=== PATIENT | female | born 1985 | race Caucasian/White ===

== ENCOUNTER 2020-12-02 15:05 | Emergency (ER) | payer SELFPAY ==
[~2020-12-02] VITALS: Ht 165.1 cm; Wt 82.7 kg
[2020-12-02 15:32] LABS: BILIRUBIN,URINE NEGATIVE (NEG); CLARITY,URINE CLEAR; COLOR,URINE YELLOW; NITRITE,URINE NEGATIVE (NEG); PH,URINE 5.5 (<5.0-8.0); PROTEIN,URINE NEGATIVE (NEG-TRACE); UROBILINOGEN,URINE 0.2 mg/dL (0.2 mg/dL)
[2020-12-02 15:39] LABS: BASO # 0.1 x10^3/uL (0.0-0.2); BASO % 1 % (0-3); EOS # 0.1 x10^3/uL (0.0-0.7); EOS % 1 % (0-3); HEMATOCRIT 42.4 % (36.0-47.0); HEMOGLOBIN 14.5 g/dL (12.0-15.5); LYMPH % 32 % (24-48); MEAN CORPUSCULAR HEMOGLOBIN 31 pg (25-35); MEAN CORPUSCULAR HGB CONC 34 g/dL (31-37); MEAN CORPUSCULAR VOLUME 91 fL (79-100); MONO # 0.7 x10^3/uL (0.0-1.1); MONO % 7 % (0-9); NEUT # 5.5 x10^3/uL (1.8-7.7); NEUT % 58 % (31-73); PLATELET COUNT 247 x10^3/uL (140-400); RED BLOOD COUNT 4.66 x10^6/uL (3.50-5.40); RED CELL DISTRIBUTION WIDTH 13.8 % (11.5-14.5); WHITE BLOOD COUNT 9.4 x10^3/uL (4.0-11.0)
[2020-12-02 15:45] LABS: BACTERIA,URINE FEW /HPF (0-FEW); WBC,URINE RARE /HPF (0-4)
[2020-12-02] MEDS ORDERED: IV NORMAL SALINE 1000ML BAG 1,000 ML IV ONE (15:45)
--- NOTE | 2020-12-02 15:46 | PHYS DOC ---
Past Medical History Past Medical History: No Pertinent History Past Surgical History: Hysterectomy Smoking Status: Unknown if ever smoked Alcohol Use: None General Adult EDM: Chief Complaint: ABDOMINAL PAIN HPI: HPI: Patient is a 35 year old female who presents with 2 weeks of intermittent abdominal cramping that is generalized and then the last 2 days that she has had sharp shooting pain that goes down the back of the right leg. The patient states that she has bilateral gluteal cramping. She denies any numbness or tingling. She states that she has also noticed that when she goes to stand up she will begin to dribble urine. She states that it is normal for her that when she laughs or jumps or exercises things like that that she will sometimes dribble urine but not like this. She states that she has a normal bowel movement yesterday. She states that she has not lost her bowels. She states she feels like her lower back bilaterally is in spasms. Patient also has concerns for sexually transmitted diseases and wants to be checked and treated today. Patient is rating her pain an 8 out of 10. Patient has had a hysterectomy in the past but denies any other past medical history. Review of Systems: Review of Systems: Constitutional: Denies fever or chills. [] Eyes: Denies change in visual acuity. [] HENT: Denies nasal congestion or sore throat. [] Respiratory: Denies cough or shortness of breath. [] Cardiovascular: Denies chest pain or edema. [] GI: + Low mid abdominal pain, denies nausea, vomiting, bloody stools or diarrhea. [] : Denies dysuria. + Urinary dribbling [] Musculoskeletal: + Bilateral lower back pain with sharp shooting pain down the back of her right leg or denies joint pain. + Gluteal spasms [] Integument: Denies rash. [] Neurologic: Denies headache, focal weakness or sensory changes. [] Endocrine: Denies polyuria or polydipsia. [] Lymphatic: Denies swollen glands. [] Psychiatric: Denies depression or anxiety. [] Heart Score: Risk Factors: Risk Factors: DM, Current or recent (<one month) smoker, HTN, HLP, family history of CAD, obesity. Risk Scores: Score 0 - 3: 2.5% MACE over next 6 weeks - Discharge Home Score 4 - 6: 20.3% MACE over next 6 weeks - Admit for Clinical Observation Score 7 - 10: 72.7% MACE over next 6 weeks - Early Invasive Strategies Current Medications: Current Medications Medications (Trade) Dose Ordered Sig/Iam Start Time Stop Time Status Last Admin Dose Admin Azithromycin (Zithromax) 1,000 mg 1X ONCE 12/02/20 15:30 12/02/20 15:31 UNV Ceftriaxone Sodium (Rocephin Im) 500 mg 1X ONCE 12/02/20 15:30 12/02/20 15:31 UNV Fentanyl Citrate (Fentanyl 2ml Vial) 50 mcg 1X ONCE 12/02/20 15:30 12/02/20 15:31 UNV Methylprednisolone Sodium Succinate (SOLU-Medrol 125MG VIAL) 125 mg 1X ONCE 12/02/20 15:30 12/02/20 15:31 UNV Ondansetron HCl (Zofran) 4 mg 1X ONCE 12/02/20 15:30 12/02/20 15:31 UNV Sodium Chloride 1,000 ml @ 1,000 mls/hr 1X ONCE 12/02/20 15:45 12/02/20 16:44 UNV Physical Exam: PE: Constitutional: Well developed, well nourished, no acute distress, non-toxic appearance. [] HENT: Normocephalic, atraumatic, bilateral external ears normal, oropharynx moist, no oral exudates, nose normal. [] Eyes: PERRLA, EOMI, conjunctiva normal, no discharge. [] Neck: Normal range of motion, no tenderness, supple, no stridor. [] Cardiovascular:Heart rate regular rhythm, no murmur [] Lungs & Thorax: Bilateral breath sounds clear to auscultation [] Abdomen: Bowel sounds normal, soft, mid lower tenderness, no masses, no pulsatile masses. [] Skin: Warm, dry, no erythema, no rash. [] Back: No tenderness, no CVA tenderness. [] Extremities: No tenderness, no cyanosis, no clubbing, ROM intact, no edema. [] Neurologic: Alert and oriented X 3, normal motor function, normal sensory function, no focal deficits noted. [] Psychologic: Affect normal, judgement normal, mood normal. [] Current Patient Data: Labs: Laboratory Tests Test 12/02/20 15:23 POC Urine HCG, Qualitative Hcg negative (Negative) Vital Signs: Vital Signs Date Time Temp Pulse Resp B/P (MAP) Pulse Ox O2 Delivery O2 Flow Rate FiO2 12/02/20 15:20 98.5 89 16 145/83 (103) 100 Room Air 98.5 EKG: EKG: [] Radiology/Procedures: Radiology/Procedures: [] Impression: [facility] [address] [place] [address] IMAGING REPORT Signed PATIENT: KATHIE MANZANO ACCOUNT: [id number] : 1985 LOCATION: ER AGE: 35 SEX: F EXAM STATUS: REG ER ORD. PHYSICIAN: GLORY DYER APRN REASON: abd pain, bloating PROCEDURE: CT ABD PELV W/ IV CONTRST ONLY CT SCAN OF THE ABDOMEN AND PELVIS WITH IV CONTRAST. History: Reason: abd pain, bloating Comparison:None. Procedure: Contiguous axial images of the abdomen and pelvis were performed after the administration of 60 cc of Omni 300 IV contrast. Oral contrast: No. Findings: Liver: 6 mm hypoattenuating lesion posteriorly right lobe of liver is too small to characterize but is likely a cyst Spleen: Unremarkable Pancreas: Unremarkable Adrenal Glands: Unremarkable Kidneys: Unremarkable There is no mass or lymphadenopathy. There is no free air. There is no free fluid. The urinary bladder appears normal. The gallbladder appears normal. The appendix is not seen. Impression: No acute findings. End impression CT lumbar spine without contrast History: Back pain Axial helical images of the lumbar spine were obtained without contrast. Axial, coronal and sagittal reconstruction was performed. Findings: The vertebral bodies are aligned. There is no loss of vertebral body stature. Evaluation of the central canal is limited without contrast. There is no evidence of significant central or neuroforaminal stenosis. Impression: No acute findings. PQRS Compliance Statement: One or more of the following individualized dose reduction techniques were u tilized for this examination: 1. Automated exposure control 2. Adjustment of the mA and/or kV according to patient size 3. Use of iterative reconstruction technique Electronically signed by: Herbert Lemons III, MD (12/02/2020 5:08 PM) [facility] DICTATED and SIGNED BY: HERBERT LEMONS III, MD DATE: 12/02/20 [id number] 0 Course & Med Decision Making: Course & Med Decision Making Pertinent Labs and Imaging studies reviewed. (See chart for details) See HPI. Patient is ambulatory with a steady gait. Every time she bends over or tries to go from sitting to standing or standing to sitting she has a lot of pain in her back. Her abdomen is soft but she states she has some tenderness to the mid lower abdomen with palpation. Sensations intact. Patient is treated with Rocephin and azithromycin for chlamydia and gonorrhea and she is told that the results will come back in 48 hours and she will be called only if something is positive. She denies any kind of injury to her back. 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 She states that a couple days ago she did notice that when she went to lift a box she began to dribble some urine. Patient is moving all extremities equally with equal strengths. Good deep tendon reflexes. Alert and oriented x4. Skin pink warm and dry. PERRLA. She denies urinary symptoms, vaginal discharge, vaginal itching, diarrhea, constipation, nausea, vomiting, headache, dizziness, focal weakness, numbness or tingling, vision changes, chest pain, shortness of air. Patient is given Solu- Medrol, 1 liter bolus, fentanyl, Zofran also in the ED. [] Dragon Disclaimer: Dragon Disclaimer: This electronic medical record was generated, in whole or in part, using a voice recognition dictation system. Departure Departure Impression: Primary Impression: Abdominal pain Qualified Codes: R10.84 - Generalized abdominal pain Additional Impressions: Back pain Qualified Codes: M54.41 - Lumbago with sciatica, right side Urinary symptom or sign Concern about STD in female without diagnosis Disposition: 01 DC HOME SELF CARE/HOMELESS Condition: STABLE Patient Instructions: Abdominal Pain (Nonspecific), Back Pain, Adult, Sciatica with Rehab-SportsMed, Sexually Transmitted Disease Additional Instructions: Follow-up with your primary care provider as needed. Return if you start having focal weakness in certain part of your body or in extremity, numbness in the buttocks area, loss of bowel or total loss of bladder. Scripts Ibuprofen (IBUPROFEN) 600 Mg Tablet 600 MG PO PRN Q6HRS PRN for INFLAMMATION, #24 TAB Prov: GLORY DYER [employer] 12/02/20 Tramadol Hcl (TRAMADOL HCL) 50 Mg Tablet 50 MG PO Q6HRS PRN for PAIN, #12 TAB Prov: GLORY DYER [employer] 12/02/20 Cyclobenzaprine Hcl (CYCLOBENZAPRINE HCL) 10 Mg Tablet 1 TAB PO TID, #30 TAB Prov: GLORY DYER [employer] 12/02/20 Methylprednisolone (MEDROL) 4 Mg Tab.ds.pk 1 PKG PO UD, #1 PKG Prov: GLORY DYER [employer] 12/02/20 GLORY DYER APRN Dec 02, 2020 15:46
[2020-12-02 16:27] LABS: CALCIUM 8.7 mg/dL (8.5-10.1); CREATININE 1.1 mg/dL (0.6-1.0); GFR 55.9; POTASSIUM 3.9 mmol/L (3.5-5.1)
[2020-12-02 16:29] LABS: ALBUMIN 3.4 g/dL (3.4-5.0); TOTAL BILIRUBIN 0.3 mg/dL (0.2-1.0); TOTAL PROTEIN 6.9 g/dL (6.4-8.2)
[2020-12-02] MEDS ORDERED: AZITHROMYCIN 250 MG TABLET. PO ONE (16:30)
[2020-12-02] MEDS ORDERED: fentaNYL PF VIAL 100 MCG/2 ML VIAL IVP ONE (16:30)
[2020-12-02] MEDS ORDERED: ONDANSETRON PF 4 MG/2 ML VIAL. IVP ONE (16:30)
[2020-12-02] MEDS ORDERED: cefTRIAXone IM 250 MG VIAL IM ONE (16:30)
[2020-12-02] MEDS ORDERED: methylPREDNISolone SOD SUCC PF 125 MG/2 ML VIAL. IV ONE (16:30)
[2020-12-02] MEDS ORDERED: IOHEXOL 300 MG/ML 100ML VIAL. IV ONE (16:45)
[2020-12-02] MEDS ORDERED: CONTRAST GIVEN. MC PRN (16:45)
--- NOTE | 2020-12-02 17:10 | RAD ---
CT SCAN OF THE ABDOMEN AND PELVIS WITH IV CONTRAST. History: Reason: abd pain, bloating Comparison:None. Procedure: Contiguous axial images of the abdomen and pelvis were performed after the administration of 60 cc o f Omni 300 IV contrast. Oral contrast: No. Findings: Liver: 6 mm hypoattenuating lesion posteriorly right lobe of liver is too small to characterize but i s likely a cyst Spleen: Unremarkable Pancreas: Unremarkable Adrenal Glands: Unremarkable Kidneys: Unremarkable There is no mass or lymphadenopathy. There is no free air. There is no free fluid. The urinary bladder appears normal. The gallbladder appears normal. The appendix is not seen. Impression: No acute findings. End impression CT lumbar spine without contrast History: Back pain Axial helical images of the lumbar spine were obtained without contrast. Axial, coronal and sagittal reconstruction was performed. Findings: The vertebral bodies are aligned. There is no loss of vertebral body stature. Evaluation of the central canal is limited without contrast. There is no evidence of significant cent ral or neuroforaminal stenosis. Impression: No acute findings. PQRS Compliance Statement: One or more of the following individualized dose reduction techniques were utilized for this examinat ion: 1. Automated exposure control 2. Adjustment of the mA and/or kV according to patient size 3. Use of iterative reconstruction technique Electronically signed by: Merrill Genao III, MD (12/02/2020 5:08 PM) [facility]
[2020-12-02] MEDS ORDERED: METH4TAB2 PO (17:38)
[2020-12-02] MEDS ORDERED: TRAM50TA PO (17:38)
[2020-12-02] MEDS ORDERED: IBUP-1007 PO (17:38)
[2020-12-02] MEDS ORDERED: CYCL10TA2 PO (17:38)
[2020-12-02 18:07] VITALS: BP 124/64
[2020-12-03 19:10] LABS: GC PROBE Negative (Negative)
== END 2020-12-02 18:05 | disposition home or self-care (01) ==
LOC: ER 15:05
DX: R10.84 Generalized abdominal pain (principal); M54.41 Lumbago with sciatica, right side; Z20.2 Contact with and (suspected) exposure to infections with a predominantly sexual mode of transmission; Z90.710 Acquired absence of both cervix and uterus
CPT/HCPCS: 36415; 74177; 80053; 81001; 81025; 83690; 85025; 87491; 87591; 96361; 96372; 96374; 96375; 99285; J0696; J2405; J2930; J3010; J7030; Q0111; Q9967